=== PATIENT | male | born 1960 | race Caucasian/White ===

== ENCOUNTER → 2025-03-13 12:45 | Outpatient (BNVA) | payer MEDICARE, SELFPAY | PROVIDERS: Family Provider Family Medicine; PCP Family Medicine; Visit Provider Podiatrist Foot & Ankle Surgery | DX: E11.621 Type 2 diabetes mellitus with foot ulcer (principal); L97.512 Non-pressure chronic ulcer of other part of right foot with fat layer exposed; G62.9 Polyneuropathy, unspecified; E11.42 Type 2 diabetes mellitus with diabetic polyneuropathy | CPT/HCPCS: 11042 ==

== ENCOUNTER → 2025-03-20 08:45 | Outpatient (BNVA) | payer MEDICARE, SELFPAY | PROVIDERS: Family Provider Family Medicine; PCP Family Medicine; Visit Provider Podiatrist Foot & Ankle Surgery | DX: E11.621 Type 2 diabetes mellitus with foot ulcer (principal); L97.512 Non-pressure chronic ulcer of other part of right foot with fat layer exposed; G62.9 Polyneuropathy, unspecified; L03.116 Cellulitis of left lower limb | CPT/HCPCS: 73630 ==

== ENCOUNTER 2025-03-20 10:05 | Outpatient (CLI) | payer MEDICARE, SELFPAY | END 2025-03-20 10:06 | disposition home or self-care (01) | LOC: SPT 10:07 | PROVIDERS: Family Provider Family Medicine; PCP Family Medicine; Visit Provider Podiatrist Foot & Ankle Surgery | DX: Z46.89 Encounter for fitting and adjustment of other specified devices (principal); L97.512 Non-pressure chronic ulcer of other part of right foot with fat layer exposed | CPT/HCPCS: L4361 ==

== ENCOUNTER → 2025-03-27 07:59 | Outpatient (BNVA) | payer MEDICARE, SELFPAY | PROVIDERS: Family Provider Family Medicine; PCP Family Medicine; Visit Provider Podiatrist Foot & Ankle Surgery | DX: E11.621 Type 2 diabetes mellitus with foot ulcer (principal); L97.512 Non-pressure chronic ulcer of other part of right foot with fat layer exposed; G62.9 Polyneuropathy, unspecified; M20.31 Hallux varus (acquired), right foot | CPT/HCPCS: 11043; 99214 ==

== ENCOUNTER → 2025-04-10 07:15 | Outpatient (BNVA) | payer MEDICARE, SELFPAY | PROVIDERS: Family Provider Family Medicine; PCP Family Medicine; Visit Provider Podiatrist Foot & Ankle Surgery | DX: E11.621 Type 2 diabetes mellitus with foot ulcer (principal); L97.512 Non-pressure chronic ulcer of other part of right foot with fat layer exposed; G62.9 Polyneuropathy, unspecified; M20.31 Hallux varus (acquired), right foot; E11.42 Type 2 diabetes mellitus with diabetic polyneuropathy | CPT/HCPCS: 11042 ==